=== PATIENT | female | born 1985 | race Caucasian/White ===

== ENCOUNTER 2017-03-06 10:49 | Emergency (ER) | payer BC, OTHER ==
[~2017-03-06] VITALS: Ht 170.2 cm; Wt 99.8 kg
[2017-03-06 10:54] VITALS: BP_SYST 122
[2017-03-06] MEDS ORDERED: IPRATROPIUM/ALBUTEROL SULFATE 3 ML AMPUL.NEB INH ONE (11:15)
[2017-03-06 13:24] VITALS: BP_SYST 118
== END 2017-03-06 13:24 | disposition home or self-care (01) ==
LOC: SED 10:49
DX: J45.909 Unspecified asthma, uncomplicated (principal); Z87.442 Personal history of urinary calculi
CPT/HCPCS: 71020-TC; 81025; 94640; 99284

== ENCOUNTER 2018-01-04 16:04 | Emergency (ER) | payer BC ==
[~2018-01-04] VITALS: Ht 170.2 cm; Wt 98.9 kg
[2018-01-04 16:05] VITALS: BP_SYST 111
[2018-01-04] MEDS ORDERED: IPRATROPIUM BROM 0.5 MG/2.5 ML VIAL.NEB (ATROVENT) IH ONE (17:45)
[2018-01-04] MEDS ORDERED: methylPREDNISolone SOD SUCC/PF 62.5 MG/ML VIAL IM ONE (17:45)
[2018-01-04] MEDS ORDERED: ALBUTEROL SULFATE 0.083% 2.5 MG/3 ML VIAL.NEB IH ONE (17:45)
[2018-01-04 19:29] VITALS: BP_SYST 110
== END 2018-01-04 19:29 | disposition home or self-care (01) ==
LOC: SED 16:04
DX: J20.8 Acute bronchitis due to other specified organisms (principal); R03.0 Elevated blood-pressure reading, without diagnosis of hypertension; Z87.442 Personal history of urinary calculi
CPT/HCPCS: 71045; 94640; 96372; 99283; J2930; J7613

== ENCOUNTER 2018-06-27 16:36 | Emergency (ER) | payer BC ==
[~2018-06-27] VITALS: Ht 167.6 cm; Wt 104.3 kg
[2018-06-27 16:40] VITALS: BP_SYST 127
--- NOTE | 2018-06-27 16:40 | NUR ---
BROUGHT BACK TO BED #5 AND TRIAGED. REPORT GIVEN TO NURIA
--- NOTE | 2018-06-27 16:47 | NUR ---
Patient brought in by girlfriend complaining of left groin pain starting earlier today with heavy vaginal bleeding. Patient reports that she has normally irregular menses but now worsening. Pain 8/10. No other complaints/injuries per patient or as noted. Will continue to monitor.
--- NOTE | 2018-06-27 16:47 | NUR ---
Note ian in ED - 06/27/18 at 1728 by [email or web address] Patient to bed 05 to [facility] for evaluation. Side rails up. Will assume care.
--- NOTE | 2018-06-27 16:50 | NUR ---
ER Dr. Prakash at bedside examining patient.
[2018-06-27] MEDS ORDERED: KETOROLAC TROMETHAMINE 30 MG VIAL IVP ONE (17:00)
[2018-06-27] MEDS ORDERED: KETOROLAC TROMETHAMINE 60 MG/2 ML VIAL IM ONE (17:00)
--- NOTE | 2018-06-27 17:11 | NUR ---
# 20 gauge angiocath placed to LAC. Use of asceptic technique. Opsite placed over site. Blood return noted. Blood for lab drawn from site. Flushed with 10 cc of normal saline. No evidence of infiltration noted. Patient tolerated well.
[2018-06-27] MEDS ORDERED: ONDANSETRON HCL 4 MG/2 ML VIAL IVP ONE ×3 (17:15→20:45)
--- NOTE | 2018-06-27 17:15 | NUR ---
Notified MD patient had 3 episodes of non bloody emesis in ED. New orders for Zofran 4 mg ordered.
[2018-06-27 17:20] LABS: BILIRUBIN,URINE NEGATIVE (NEGATIVE); BLOOD, URINE 2+ (NEGATIVE); CLARITY/URINE CLEAR (CLEAR); COLOR,URINE YELLOW (YELLOW); GLUCOSE,URINE NEGATIVE (NEGATIVE); KETONES,URINE TRACE (NEGATIVE); LEUKOCYTE ESTERASE ,URINE NEGATIVE (NEGATIVE); NITRITE, URINE NEGATIVE (NEGATIVE); PROTEIN URINE NEGATIVE (NEGATIVE); UROBILINOGEN,URINE 0.2 (0.2-1.0)
[2018-06-27] MEDS ORDERED: ONDANSETRON HCL 4 MG/2 ML VIAL ONE (17:23)
[2018-06-27 17:29] LABS: BACTERIA,URINE FEW /HPF (None Seen); MUCUS,URINE 2+ /LPF (None Seen); WBC,URINE 0-3 /HPF (0-3)
[2018-06-27 17:30] LABS: BARBITURATE, URINE NEGATIVE (NEG <=200); BENZODIAZEPINE, URINE NEGATIVE (NEG <=150); CANNABINOID, URINE NEGATIVE (NEG <=50); COCAINE, URINE NEGATIVE (NEG <=150); METHAMPHETAMINES SCREEN,URINE NEGATIVE (NEG <=500); OPIATE, URINE NEGATIVE (NEG <=100); PHENCYCLIDINE SCREEN,URINE NEGATIVE (NEG <=25); UR TRICYCLIC ANTIDEPRESSANTS NEGATIVE (NEG <=300); URINE AMPHETAMINE NEGATIVE (NEG <=500); URINE METHADONE NEGATIVE (NEG <=200); URINE OXYCODONE SCREEN NEGATIVE (NEG <=100); URINE PROPOXYPHENE SCREEN NEGATIVE (NEG <=300)
[2018-06-27 17:31] LABS: BASOPHILS # (AUTO) 0.1 K/uL (0.0-0.2); BASOPHILS % (AUTO) 0.5 % (0.0-2.0); EOSINOPHILS # (AUTO) 0.1 K/uL (0.0-0.4); EOSINOPHILS % (AUTO) 1.3 % (0.0-4.0); HEMATOCRIT 39.4 % (36-48); HEMOGLOBIN 13.4 g/dL (12.0-16.0); LYMPHOCYTES # (AUTO) 2.9 K/uL (1.0-5.5); LYMPHOCYTES % (AUTO) 27.6 % (20.5-51.5); MEAN CORPUSCULAR HEMOGLOBIN 30 pg (27-31); MEAN CORPUSCULAR HGB CONC 34 % (32-36); MEAN CORPUSCULAR VOLUME 88 fL (79.0-98.0); MONOCYTES # (AUTO) 0.6 K/uL (0.0-1.0); MONOCYTES % (AUTO) 5.9 % (1.7-9.3); NEUTROPHILS # (AUTO) 6.7 K/uL (1.8-7.7); NEUTROPHILS % (AUTO) 64.7 % (40.0-70.0); PLATELET COUNT (AUTO) 393 K/uL (130-430); RED BLOOD CELL COUNT(AUTO) 4.47 MIL/uL (4.2-6.2); RED CELL DISTRIBUTION WIDTH 12.4 % (9.0-15.0); WHITE BLOOD COUNT (AUTO) 10.4 K/uL (4.8-10.8)
[2018-06-27 17:35] LABS: CALCIUM 9.3 mg/dL (8.4-11.0); CREATININE 0.88 mg/dL (0.55-1.30); POTASSIUM 3.7 mmol/L (3.5-5.1)
[2018-06-27 17:39] LABS: ALBUMIN 3.8 g/dL (3.4-4.8); TOTAL BILIRUBIN 0.3 mg/dL (0.0-1.0)
--- NOTE | 2018-06-27 17:42 | NUR ---
Patient off unit to CT scan.
--- NOTE | 2018-06-27 17:48 | NUR ---
Patient reports pain of 8/10 after toradol 30 mg IVP. MD made aware. Awaiting new orders.
[2018-06-27] MEDS ORDERED: MORPHINE 4 MG/ML INJ. SYRINGE IVP ONE ×2 (18:00→20:45)
--- NOTE | 2018-06-27 18:24 | NUR ---
MD notified patient at bedside vomiting. New orders received.
--- NOTE | 2018-06-27 19:19 | NUR ---
ER Dr. Prakash at bedside discussing results
--- NOTE | 2018-06-27 19:35 | NUR ---
Patient escorted to radiology by rad staff for ultrasound.
--- NOTE | 2018-06-27 20:11 | NUR ---
Patient returned from Ultrasound.
--- NOTE | 2018-06-27 20:24 | NUR ---
ER Dr. Scott at bedside discussing results.
[2018-06-27] MEDS ORDERED: MORPHINE 2 MG/ML INJ. SYRINGE IVP ONE (20:45)
--- NOTE | 2018-06-27 20:59 | NUR ---
Pt medicated for nausea and 10/10 abdominal pain. Pt tolerated medication well, no adverse effects noted will continue to monitor.
--- NOTE | 2018-06-27 21:20 | NUR ---
Patient given written and verbal discharge instructions and verbalizes understanding. ER MD discussed with patient the results and treatment provided. Patient in stable condition. ID arm band removed. IV catheter removed intact and dressing applied, no active bleeding. Rx of Tramadol, Motrin, and Zofran given. Patient educated on pain management and to follow up with PMD. Pain Scale 0/10. Opportunity for questions provided and answered. Medication side effect fact sheet provided.
[2018-06-27 21:21] VITALS: BP_SYST 127
== END 2018-06-27 21:21 | disposition home or self-care (01) ==
LOC: SED 16:36
DX: R10.2 Pelvic and perineal pain (principal); J45.909 Unspecified asthma, uncomplicated; Z87.442 Personal history of urinary calculi
CPT/HCPCS: 36415; 74176; 76830; 76857; 80053; 80307; 81000; 81025; 85025; 96374; 96375; 96376; 99284; J1885; J2270; J2405

== ENCOUNTER 2018-07-24 19:45 | Emergency (ER) | payer BC, OTHER ==
[~2018-07-24] VITALS: Ht 170.2 cm; Wt 106.6 kg
[2018-07-24 19:54] VITALS: BP_SYST 118
[2018-07-24] MEDS ORDERED: KETOROLAC TROMETHAMINE 30 MG VIAL IM ONE (20:15)
[2018-07-24] MEDS ORDERED: CYCLOBENZAPRINE HCL 10 MG TABLET (FLEXERIL) PO ONE (20:15)
[2018-07-24 22:10] VITALS: BP_SYST 122
== END 2018-07-24 22:10 | disposition home or self-care (01) ==
LOC: SED 19:45
DX: S39.012A Strain of muscle, fascia and tendon of lower back, initial encounter (principal); J45.909 Unspecified asthma, uncomplicated; Z87.442 Personal history of urinary calculi; V43.52XA Car driver injured in collision with other type car in traffic accident, initial encounter; Y93.89 Activity, other specified; Y92.410 Unspecified street and highway as the place of occurrence of the external cause; Y99.8 Other external cause status
CPT/HCPCS: 72110; 96372; 99283; J1885

== ENCOUNTER 2022-06-22 16:56 | Emergency (ER) | payer BC ==
[~2022-06-22] VITALS: Ht 170.2 cm; Wt 95.3 kg
[2022-06-22 17:10] VITALS: BP_SYST 107
--- NOTE | 2022-06-22 17:13 | NUR ---
Patient triaged and placed in waiting room. VSS and patient appears in no acute distress at this time. Accompanied by SELF, awaiting available bed, and MD notified of need for MSE.
[2022-06-22] MEDS ORDERED: IBUPROFEN 600 MG TABLET PO ONE (21:30)
[2022-06-23] MEDS ORDERED: VANCOMYCIN HCL 1,000 MG in NS 250 ML IV ONE (00:15)
[2022-06-23] MEDS ORDERED: PIPERACILLIN/TAZO 3.375 GM in NS 50 ML IV ONE (00:15)
[2022-06-23] MEDS ORDERED: NACL 0.9% 1,000 ML IV ONE (00:15)
[2022-06-23] MEDS ORDERED: KETOROLAC TROMETHAMINE 30 MG VIAL IVP ONE (00:15)
[2022-06-23] MEDS ORDERED: DEXAMETHASONE SOD PHOSPHATE 10 MG/ML VIAL IVP ONE (00:15)
[2022-06-23] MEDS ORDERED: AUG875 PO (00:30)
[2022-06-23] MEDS ORDERED: DOXY100C PO (00:30)
[2022-06-23 00:53] LABS: BASOPHILS # (AUTO) 0.1 K/uL (0.0-0.2); BASOPHILS % (AUTO) 0.9 % (0.0-2.0); EOSINOPHILS # (AUTO) 0.1 K/uL (0.0-0.4); EOSINOPHILS % (AUTO) 1.7 % (0.0-4.0); HEMATOCRIT 38.2 % (36-48); HEMOGLOBIN 12.7 g/dL (12.0-16.0); LYMPHOCYTES # (AUTO) 2.2 K/uL (1.0-5.5); LYMPHOCYTES % (AUTO) 34.1 % (20.5-51.5); MEAN CORPUSCULAR HEMOGLOBIN 31 pg (27-31); MEAN CORPUSCULAR HGB CONC 33 % (32-36); MEAN CORPUSCULAR VOLUME 92 fL (79.0-98.0); MONOCYTES # (AUTO) 0.5 K/uL (0.0-1.0); MONOCYTES % (AUTO) 7.9 % (1.7-9.3); NEUTROPHILS # (AUTO) 3.6 K/uL (1.8-7.7); NEUTROPHILS % (AUTO) 55.4 % (40.0-70.0); PLATELET COUNT (AUTO) 275 K/uL (130-430); RED BLOOD CELL COUNT(AUTO) 4.16 MIL/uL (4.2-6.2); RED CELL DISTRIBUTION WIDTH 13.3 % (9.0-15.0); WHITE BLOOD COUNT (AUTO) 6.4 K/uL (4.8-10.8)
[2022-06-23 01:06] LABS: CREATININE 0.7 mg/dL (0.55-1.30)
[2022-06-23 01:12] LABS: ALBUMIN 3.9 g/dL (3.4-4.8); TOTAL BILIRUBIN 0.7 mg/dL (0.0-1.0)
[2022-06-23 01:15] LABS: PROTHROMBIN TIME 10.4 SECS (9.5-12.5)
[2022-06-23 01:38] LABS: ERYTHROCYTE SEDIMENTATION RATE 22 MM/HR (0-20)
--- NOTE | 2022-06-23 02:40 | NUR ---
Patient to ER bed 4 to gown for evaluation. Side rails up. Report given to LM ALMANZAR.
[2022-06-23] MEDS ORDERED: PIPERACILLIN/TAZOBACTAM 3.375 GM/VIAL (ZOSYN) IV ONE (02:44)
[2022-06-23] MEDS ORDERED: VANCOMYCIN HCL 1000 MG/VIAL IV ONE (02:44)
[2022-06-23] MEDS ORDERED: DEXAMETHASONE SOD PHOSPHATE 10 MG/ML VIAL ONE (03:11)
[2022-06-23] MEDS ORDERED: KETOROLAC TROMETHAMINE 30 MG VIAL ONE (03:12)
[2022-06-23 04:03] VITALS: BP_SYST 136
[2022-06-23] MEDS ORDERED: DIPHENHYDRAMINE INJ 50 MG/ML VIAL ONE (04:37)
--- NOTE | 2022-06-23 04:41 | NUR ---
PATIENT BECAME ITCHY BEHIND HER EARS AND BACK OF NECK AFTER RECIVING IV VANCO. 25 MG OF BENADRYL ADMINISTERED. PATIENT IS STARTING TO FEEL LESS ITCHY. PATIENT DENIES SOB.
[2022-06-23] MEDS ORDERED: DIPHENHYDRAMINE INJ 50 MG/ML VIAL IVP ONE (04:45)
--- NOTE | 2022-06-23 06:00 | NUR ---
PATIENT FEELS BETTER HAS NO SIGNS OR SYMPTOMS OF ALLERGIC REACTION.
--- NOTE | 2022-06-23 06:40 | NUR ---
Patient given written and verbal discharge instructions and verbalizes understanding. ER MD discussed with patient the results and treatment provided. Patient in stable condition. ID arm band removed. IV catheter removed intact and dressing applied, no active bleeding. Rx of AUGMENTIN, VIBRAMYCIN, BACTROBAN CREAM given. Patient educated on pain management and to follow up with PMD. Pain Scale 0/10. Opportunity for questions provided and answered. Medication side effect fact sheet provided.
== END 2022-06-23 06:44 | disposition home or self-care (01) ==
LOC: SED 16:56
DX: L03.211 Cellulitis of face (principal); R51.9 Headache, unspecified; J45.909 Unspecified asthma, uncomplicated; Z79.899 Other long term (current) drug therapy
CPT/HCPCS: 99284; 80053; 85025; 85610; 85651; 87040; 36415; 83605; 87070; 96365; 96375; 96368; J1100; J1200; J1885; J2543; J3370